=== PATIENT | female | born 1935 | race Caucasian/White ===

== ENCOUNTER 2016-06-06 08:23 | Emergency (ER) | payer MEDICARE, OTHER ==
[2016-06-06 08:23] VITALS: BP 0/0
== END 2016-06-06 16:35 | disposition expired ==
LOC: ER 08:37
DX: I46.9 Cardiac arrest, cause unspecified (principal); K21.9 Gastro-esophageal reflux disease without esophagitis; E78.5 Hyperlipidemia, unspecified; I10 Essential (primary) hypertension; R41.82 Altered mental status, unspecified
CPT/HCPCS: 92950